=== PATIENT | female | born 2000 | race Caucasian/White ===

== ENCOUNTER 2025-05-29 06:03 | Day surgery (SDC) | payer BC, SELFPAY ==
[2025-05-29] VITALS (7 sets, daily range): BP systolic 116–139; BP diastolic 70–87; BMI 28.6
[2025-05-29] MEDS: NORMOSOL-R/PLASMALYTE-A 1000 IV (06:27)
[2025-05-29] MEDS: ZOFRAN 4 MG IV (09:43)
== END 2025-05-29 10:10 | disposition home or self-care (01) ==
LOC: SDS 06:03
PROVIDERS: ATTENDING PHYSICIAN Otolaryngology
DX: J03.91 Acute recurrent tonsillitis, unspecified (principal)
CPT/HCPCS: 42826; 88304

== ENCOUNTER 2025-06-06 15:25 | Day surgery (SDC) | payer BC, SELFPAY ==
[2025-06-06] VITALS (10 sets, daily range): BP systolic 116–136; BP diastolic 81–88; BMI 28.4
--- NOTE | 2025-06-06 14:03 | ED.GENMED ---
History of Present Illness
<Edith Garcia PA-C - Last Filed: 06/06/25 19:17>
General
Chief Complaint: Post Operative Problem(s)
Source: patient and records
Exam Limitations: none
Time Seen by Provider: 06/06/25 13:59
History of Present Illness
History of Present Illness:
24yoF with a history of a tonsillectomy on 05/29/[address] Curiel presenting for evaluation of bleeding. Patient started to experience bleeding from her throat around 6:30am this morning. She has been bleeding intermittently throughout the day.
She was seen by Dr. Pennington in the office today and had an episode of hemoptysis while in the office. She was sent to the ED with plan to go to the OR for bleeding control. She denies any active bleeding on arrival.
Phy Exam
<Edith Garcia PA-C - Last Filed: 06/06/25 19:17>
General Physical Exam
General Presentation: well appearing and no apparent distress
General Skin: warm and dry
General Habitus: normal
General Mental: alert
ENT Exam
ENT Exam: normocephalic and other (Dried blood noted on posterior oropharynx. No active bleeding visualized. )
Pulmonary Exam
Pulmonary Exam: no respiratory distress
Neurological Exam
Neurological Exam: alert
[place] Coma Scale
Eye Opening: Spontaneous
Verbal Response: Oriented
Motor Response: Obeys Commands
GCS Total Score: 15
Skin Exam
Skin Exam: normal color and warm/dry
Psychiatric Exam
Psychiatric Exam: normal mood/affect
Course
<Edith Garcia PA-C - Last Filed: 06/06/25 19:17>
Orders/Labs/Results
Orders:
Orders
06/06/25 14:06
Test Result ONCE
06/06/25 14:13
Type+Screen Urgent
Complete Blood Count/With Diff Urgent
Comprehensive Metabolic Panel Urgent
HCG, Serum Qualitative Screen Urgent
PTT Urgent
Prothrombin Time Urgent
06/06/25 14:21
Tranexamic Acid 1000 mg/100 ml [Tranexamic Acid] 1,000 mg in 100 ml IV ONCE
06/06/25 14:29
Fentanyl Citrate/Pf [Sublimaze] 25 mcg IV [id number] PRN
HYDROmorphone [Dilaudid] 0.25 mg IV PACU-Q5MPRN PRN
HYDROmorphone [Dilaudid] 0.5 mg IV PACU-Q5MPRN PRN
Ondansetron Injectable [Zofran] 4 mg IV PACU-ONCEPRN PRN
Prochlorperazine [Compazine] 5 mg IV PACU-ONCEPRN PRN
Notify MD As Directed
Notify physician if: for SDS patients with known or suspected sleep obstructive sleep apnea, monitor in the
PACU.
Notify MD for any apneic/desaturation episodes
O2 Therapy [RESP] Urgent
Titrate/Wean O2 to maintain O2 sat greater than (%): 92
Special Instructions: -Provide supplemental oxygen to achieve O2 sat of 92% or greater.
-After 15 min, may wean O2 and discontinue if patient is able to maintain O2 sat of 92%
or greater during recovery period.
If patient is a discharge home, without oxygen therapy, notify anestheiologist if
unable to maintain O2 SAT of 92% or greater on room air for MD clearance.
06/06/25 14:30
Normosol (Mult Electrolytes) [Normosol-R/Plasmalyte-A] 1,000 ml IV PER PROTOCOL
06/06/25 14:44
Dexamethasone Sod Phosphate [Decadron] 20 mg .ROUTE .STK-MED ONE
Fentanyl Citrate/Pf [Sublimaze] 100 mcg .ROUTE .STK-MED ONE
Lidocaine HCl/Pf [Xylocaine-Mpf 1% Vial] 50 mg .ROUTE .STK-MED ONE
Midazolam HCl [Versed] 2 mg .ROUTE .STK-MED ONE
Propofol [Diprivan] 20 ml .ROUTE .STK-MED
Succinylcholine Chloride [Succinylcholine] 200 mg .ROUTE .STK-MED ONE
06/06/25 14:45
Normosol (Mult Electrolytes) [Normosol-R/Plasmalyte-A] 1,000 ml IV PER PROTOCOL
06/06/25 15:05
Bupivacaine 0.25%Pf/Epinephrin [Sensorcaine-Epi 0.25%-0.0005] 30 ml .ROUTE .STK-MED ONE
06/06/25 15:10
Oxymetazoline HCl [Afrin Nasal Brush] 30 sprays .ROUTE .STK-MED ONE
06/06/25 15:26
Fentanyl Citrate/Pf [Sublimaze] 25 mcg IV [id number] PRN
HYDROmorphone [Dilaudid] 0.25 mg IV PACU-Q5MPRN PRN
HYDROmorphone [Dilaudid] 0.5 mg IV PACU-Q5MPRN PRN
Ondansetron Injectable [Zofran] 4 mg IV PACU-ONCEPRN PRN
Prochlorperazine [Compazine] 5 mg IV PACU-ONCEPRN PRN
06/06/25 15:38
Phenylephrine HCl/0.9% NaCl [Naveen-Synephrine] 1,000 mcg .ROUTE .STK-MED ONE
06/06/25 15:40
Ondansetron Injectable [Zofran] 4 mg .ROUTE .STK-MED ONE
06/06/25 15:45
Propofol [Diprivan] 20 ml .ROUTE .STK-MED
Propofol [Diprivan] 20 ml .ROUTE .STK-MED
06/06/25 18:00
Oxycodone [Roxicodone] 10 mg PO [id number] PRN
06/06/25 14:13
06/06/25 14:13
Vital Signs
Initial and Last Documented VS:
Initial Vital Signs
Temp Pulse Resp BP Pulse Ox
98.0 F 118 20 121/88 99
06/06/25 13:20 06/06/25 13:20 06/06/25 13:20 06/06/25 13:20 06/06/25 13:20
Last Documented Vital Signs
Temp Pulse Resp BP Pulse Ox
97.1 F 66 16 136/83 99
06/06/25 16:20 06/06/25 17:20 06/06/25 17:20 06/06/25 17:20 06/06/25 17:20
<Paresh Mcdonald, DO - Last Filed: 06/06/25 14:20>
Orders/Labs/Results
Orders:
Orders
06/06/25 14:06
Test Result ONCE
06/06/25 14:13
Type+Screen Urgent
Complete Blood Count/With Diff Urgent
Comprehensive Metabolic Panel Urgent
HCG, Serum Qualitative Screen Urgent
PTT Urgent
Prothrombin Time Urgent
06/06/25 14:21
Tranexamic Acid 1000 mg/100 ml [Tranexamic Acid] 1,000 mg in 100 ml IV ONCE
06/06/25 14:29
Fentanyl Citrate/Pf [Sublimaze] 25 mcg IV [id number] PRN
HYDROmorphone [Dilaudid] 0.25 mg IV PACU-Q5MPRN PRN
HYDROmorphone [Dilaudid] 0.5 mg IV PACU-Q5MPRN PRN
Ondansetron Injectable [Zofran] 4 mg IV PACU-ONCEPRN PRN
Prochlorperazine [Compazine] 5 mg IV PACU-ONCEPRN PRN
Notify MD As Directed
Notify physician if: for SDS patients with known or suspected sleep obstructive sleep apnea, monitor in the
PACU.
Notify MD for any apneic/desaturation episodes
O2 Therapy [RESP] Urgent
Titrate/Wean O2 to maintain O2 sat greater than (%): 92
Special Instructions: -Provide supplemental oxygen to achieve O2 sat of 92% or greater.
-After 15 min, may wean O2 and discontinue if patient is able to maintain O2 sat of 92%
or greater during recovery period.
If patient is a discharge home, without oxygen therapy, notify anestheiologist if
unable to maintain O2 SAT of 92% or greater on room air for MD clearance.
06/06/25 14:30
Normosol (Mult Electrolytes) [Normosol-R/Plasmalyte-A] 1,000 ml IV PER PROTOCOL
06/06/25 14:44
Dexamethasone Sod Phosphate [Decadron] 20 mg .ROUTE .STK-MED ONE
Fentanyl Citrate/Pf [Sublimaze] 100 mcg .ROUTE .STK-MED ONE
Lidocaine HCl/Pf [Xylocaine-Mpf 1% Vial] 50 mg .ROUTE .STK-MED ONE
Midazolam HCl [Versed] 2 mg .ROUTE .STK-MED ONE
Propofol [Diprivan] 20 ml .ROUTE .STK-MED
Succinylcholine Chloride [Succinylcholine] 200 mg .ROUTE .STK-MED ONE
06/06/25 14:45
Normosol (Mult Electrolytes) [Normosol-R/Plasmalyte-A] 1,000 ml IV PER PROTOCOL
06/06/25 15:05
Bupivacaine 0.25%Pf/Epinephrin [Sensorcaine-Epi 0.25%-0.0005] 30 ml .ROUTE .STK-MED ONE
06/06/25 15:10
Oxymetazoline HCl [Afrin Nasal Brush] 30 sprays .ROUTE .STK-MED ONE
06/06/25 15:26
Fentanyl Citrate/Pf [Sublimaze] 25 mcg IV [id number] PRN
HYDROmorphone [Dilaudid] 0.25 mg IV PACU-Q5MPRN PRN
HYDROmorphone [Dilaudid] 0.5 mg IV PACU-Q5MPRN PRN
Ondansetron Injectable [Zofran] 4 mg IV PACU-ONCEPRN PRN
Prochlorperazine [Compazine] 5 mg IV PACU-ONCEPRN PRN
06/06/25 15:38
Phenylephrine HCl/0.9% NaCl [Naveen-Synephrine] 1,000 mcg .ROUTE .STK-MED ONE
06/06/25 15:40
Ondansetron Injectable [Zofran] 4 mg .ROUTE .STK-MED ONE
06/06/25 15:45
Propofol [Diprivan] 20 ml .ROUTE .STK-MED
Propofol [Diprivan] 20 ml .ROUTE .STK-MED
06/06/25 18:00
Oxycodone [Roxicodone] 10 mg PO SDS-Q4HPRN PRN
06/06/25 14:13
06/06/25 14:13
Vital Signs
Initial and Last Documented VS:
Initial Vital Signs
Temp Pulse Resp BP Pulse Ox
98.0 F 118 20 121/88 99
06/06/25 13:20 06/06/25 13:20 06/06/25 13:20 06/06/25 13:20 06/06/25 13:20
Last Documented Vital Signs
Temp Pulse Resp BP Pulse Ox
97.1 F 66 16 136/83 99
06/06/25 16:20 06/06/25 17:20 06/06/25 17:20 06/06/25 17:20 06/06/25 17:20
Georgialt;Edith Garcia PA-C - Last Filed: 06/06/25 19:17>
MDM/Problems Addressed
Differential Diagnosis Includes:
24yoF sent in by ENT for posttonsillectomy bleeding. No active bleeding on arrival. HR 118 in triage. BP stable. Discussed with Dr. Pennington. Plan is to take patient back to the OR for bleeding control. IV access obtained and labs sent.
Hemoglobin is stable at 13.4. IV TXA ordered per ENT request. Patient did have an episode of vomiting while in the emergency department which was dark brown. Patient transferred to the OR in stable condition.
<Edith Garcia PA-C - Last Filed: 06/06/25 19:17>
*Pulse Oximetry
SaO2: 99
Oxygen Mode of Delivery: Room air
Patient hypoxic: no
*Critical Care Note
Total Time (30-74mins, 75-104mins- exclusive of procedures): Not Applicable
ED Attending Note
<Edith Garcia PA-C - Last Filed: 06/06/25 19:17>
-
Portions of this chart may have been created with voice recognition software.� Occasional wrong word or��sound alike� substitutions may have occurred due to the inherent limitations of voice recognition software.
<Paresh Mcdonald DO - Last Filed: 06/06/25 14:20>
ED Attending Note
Patient seen and examined by attending physician: Yes
I performed the substantive portion of visit, reviewed & personally made and approve the management plan that is documented in note by myself or MINI.: Yes
ED Attending Note:
I evaluated the patient at bedside. The patient is somewhat tachycardic. There is evidence of recent bleeding. Plan is for OR with Dr. Pennington later today. Considered TXA.
Discharge Plan
Departure
Patient Disposition: OR
Date of Disposition: 06/06/25
Time of Disposition: 14:06
Presentation/result/management discussed w/ accepting MD/DO: Dr. Pennington
Discharge Problem:
Post-tonsillectomy hemorrhage
Interventions
Interventions:
*Risk Screen - Suicide Last Done: 06/06/25 14:15
*General Assessment Last Done: 06/06/25 13:20
*Neglect/Abuse Screening Last Done: 06/06/25 14:15
*ED- Fall Risk Assessment Last Done: 06/06/25 14:15
*ED COVID-19 Vaccine History Last Done: 06/06/25 14:15
*ED Influenza Vaccine History Last Done: 06/06/25 14:15
*Nursing Disposition Last Done: 06/06/25 15:01
ED-Skin Assessment Last Done: 06/06/25 14:21
Discharge Date and Time
Discharge Date/Time: 06/06/25 15:03
[2025-06-06 14:26] LABS: Hematocrit 38.8 % (37.0-47.0); Hemoglobin 13.4 g/dL (12.0-16.0); Mean Corp Hgb Conc. 34.5 g/dL (33.0-37.0); Mean Corpuscular Volume 86.8 fL (81.0-99.0); Nucleated Red Blood Cells % 0 %; Platelet Count 278 10^3/uL (130-400); Red Cell Dist. Width 12.0 % (11.5-14.5)
[2025-06-06] MEDS: TRANEXAMIC ACID 100 IV (14:29)
[2025-06-06 14:33] LABS: INR 1.00; PT 13.5 Sec (11.4-14.6)
[2025-06-06 14:34] LABS: APTT 30.5 Sec (23.4-35.0)
[2025-06-06 14:47] LABS: ALT (SGPT) 23 U/L (0-35); AST (SGOT) 24 U/L (14-36); Albumin 4.8 g/dl (3.5-5.0); Alkaline Phosphatase 59 U/L (38-126); Blood Urea Nitrogen 14 mg/dl (7-17); Calcium 9.5 mg/dl (8.4-10.2); Carbon Dioxide 26 mmol/L (22-30); Chloride 107 mmol/L (98-107); Estimated Creatinine Clearance > 125 ml/min; Glucose 94 mg/dl (70-99); Potassium 3.9 mmol/L (3.5-5.1); Sodium 141 mmol/L (135-145); Total Protein 7.7 g/dl (6.3-8.2); eGFR > 60.00
[2025-06-06 14:53] LABS: HCG, Serum Qualitative Screen Negative
[2025-06-06] MEDS: ROXICODONE 10 MG PO (17:47)
== END 2025-06-06 17:48 | disposition home or self-care (01) ==
LOC: SDS 15:25
PROVIDERS: Physician Assistant; ATTENDING PHYSICIAN Otolaryngology; EMERGENCY PHYSICIAN Emergency Medicine; FAMILY PHYSICIAN Student in an Organized Health Care Education/Training Program
DX: J95.830 Postprocedural hemorrhage of a respiratory system organ or structure following a respiratory system procedure (principal); Y83.6 Removal of other organ (partial) (total) as the cause of abnormal reaction of the patient, or of later complication, without mention of misadventure at the time of the procedure
CPT/HCPCS: 42962; 80053; 84703; 85025; 85610; 85730; 86850; 86900; 86901; 96374; 99284